=== PATIENT | female | born 1980 | race Two or more races ===

== ENCOUNTER 2017-06-03 16:35 | Emergency (ER) | payer BC, MEDICAID ==
[~2017-06-03] VITALS: Ht 157.5 cm; Wt 68.0 kg
[~2017-06-03 16:35] MED LIST: PREN-96
[2017-06-03 16:49] VITALS: BP 112/64
[2017-06-03 17:22] LABS: Basophils # (auto) 0 uL; CONDITION Y; Eosinophils # (auto) 0 uL; Hematocrit 44.6 % (36.0-46.0); Hemoglobin 15.1 g/dL (12.2-16.2); Lymphocytes % (auto) 6.5 % (10.0-50.0); Mean Corpuscular Hemoglobin 29.9 pg (28.0-32.0); Mean Corpuscular Hgb Conc. 33.9 g/dL (32.0-36.0); Mean Platelet Volume 9.1 fL (7.4-10.4); Monocytes # (auto) 0.5 uL; Neutrophils # (auto) 13.7 uL; Neutrophils % (auto) 90.5 % (37.0-80.0); Platelet Count (auto) 323 10^3/uL (140-450); Red Cell Distribution Width 13.3 % (11.6-16.0); White Blood Cell 15.2 10^3/uL (4.4-10.8)
[2017-06-03 17:45] LABS: Albumin 4.1 g/dL (3.4-5.0); BUN/Creatinine Ratio 7.1; Calcium 8.8 mg/dL (8.5-10.1); Potassium 3.4 mmol/L (3.5-5.1)
[2017-06-03 17:48] LABS: Bilirubin, Total 0.6 mg/dL (0.2-1.0); Total Protein 8.1 g/dL (6.4-8.2)
== END 2017-06-03 21:09 | disposition left against medical advice (07) ==
LOC: ER 16:48
DX: R11.2 Nausea with vomiting, unspecified (principal); Z53.21 Procedure and treatment not carried out due to patient leaving prior to being seen by health care provider
CPT/HCPCS: 36415; 80053; 84702; 85025

== ENCOUNTER 2018-03-30 00:08 | Emergency (ER) | payer BC, OTHER ==
[~2018-03-30] VITALS: Ht 154.9 cm; Wt 70.3 kg
[2018-03-30 07:10] VITALS: BP 128/78
[2018-03-30] MEDS ORDERED: IBUPROFEN 800 MG TAB PO ONE (07:15)
== END 2018-03-30 07:40 | disposition home or self-care (01) ==
LOC: ER 00:11
DX: S90.32XA Contusion of left foot, initial encounter (principal); W01.0XXA Fall on same level from slipping, tripping and stumbling without subsequent striking against object, initial encounter; Y93.89 Activity, other specified; Y99.8 Other external cause status; Y92.513 Shop (commercial) as the place of occurrence of the external cause
CPT/HCPCS: 73630

== ENCOUNTER 2024-05-05 21:54 | Emergency (ER) | payer BC ==
[~2024-05-05] VITALS: Ht 157.5 cm; Wt 74.5 kg
[2024-05-06] MEDS ORDERED: IBUP-1455 PO (00:04)
[2024-05-06] MEDS ORDERED: ACET500T58 PO (00:05)
[2024-05-06] MEDS: HYDROcodone-ACET 10/325MG TAB PO ONE (00:10)
[2024-05-06] MEDS: KETOROLAC TROMETH 60MG/2ML VIAL IM ONE (00:10)
[2024-05-06 00:25] VITALS: BP 132/69; PULSE 66; RESP 18; TEMP 98.2; O2SAT 99
== END 2024-05-06 00:27 | disposition home or self-care (01) ==
LOC: ER 21:54
DX: S93.401A Sprain of unspecified ligament of right ankle, initial encounter (principal); S93.601A Unspecified sprain of right foot, initial encounter; X50.1XXA Overexertion from prolonged static or awkward postures, initial encounter; Y93.89 Activity, other specified; Y92.89 Other specified places as the place of occurrence of the external cause; Y99.8 Other external cause status
CPT/HCPCS: 73610; 73630; 96372; 99284; J1885